=== PATIENT | female | born 1990 | race Caucasian/White ===

== ENCOUNTER 2017-10-25 08:44 | Emergency (ER) | payer SELFPAY ==
[~2017-10-25] VITALS: Ht 157.5 cm; Wt 53.9 kg
[2017-10-25 08:52] VITALS: Ht 157.5 cm; Wt 53.9 kg
[2017-10-25 09:51] LABS: ADD UMIC YES; UR AMORPHOUS CRYSTAL FEW /HPF (NONE SEEN); UR ASCORBIC ACID NEGATIVE (NEGATIVE); UR BACTERIA FEW /HPF (NONE SEEN); UR BILIRUBIN (Dip) NEGATIVE (NEGATIVE); UR BLOOD (Dip) 3+ mg/dL (NEGATIVE); UR CLARITY SLIGHTLY CLOUDY (CLEAR); UR COLOR YELLOW (YELLOW); UR GLUCOSE (Dip) NEGATIVE (NEGATIVE); UR KETONES (Dip) NEGATIVE (NEGATIVE); UR LEUKOCYTE ESTERASE (Dip) 3+ Leu/ul (NEGATIVE); UR NITRITE (Dip) NEGATIVE (NEGATIVE); UR RBC 20 /HPF (0-5); UR SPECIFIC GRAVITY (Dip) 1.005 (1.003-1.030); UR TOTAL PROTEIN (Dip) NEGATIVE (NEGATIVE); UR UROBILINOGEN (Dip) NEGATIVE (NEGATIVE)
[2017-10-25] MEDS ORDERED: CIPR500T4 PO (09:56)
--- NOTE | 2017-10-25 11:01 | ERD ---
ER Documentation Chief Complaint Chief Complaint dysuria had a bladder infection in september has the paperwork HPI Is a 27-year-old female presenting to the emergency department complaining of dysuria for the past 2 weeks. Patient states that a couple weeks prior to being seen she had a urinary tract infection and was given Keflex, patient has finished the antibiotic course and started developing painful urination and hematuria today. Denies any flank pain, fevers ROS All systems reviewed and are negative except as per history of present illness. Medications Home Meds Active Scripts Ciprofloxacin Hcl* (Ciprofloxacin Hcl*) 500 Mg Tablet, 500 MG PO BID, #14 TAB Prov:PASQUALE REBOLLEDO PA-C 10/25/17 Allergies Allergies: Coded Allergies: No Known Allergy (Unverified , 10/25/17) PMhx/Soc History of Surgery: Yes (appendectomy) Anesthesia Reaction: No Hx Neurological Disorder: No Hx Respiratory Disorders: No Hx Cardiac Disorders: No Hx Psychiatric Problems: No Hx Miscellaneous Medical Probl: No Hx Alcohol Use: Yes (socially) Hx Substance Use: No Hx Tobacco Use: No Smoking Status: Never smoker Physical Exam Vitals Vital Signs Date Time Temp Pulse Resp B/P Pulse Ox O2 Delivery O2 Flow Rate FiO2 10/25/17 08:52 98.0 93 18 135/83 97 Physical Exam Const: Well-nourished no acute distress Head: Atraumatic Eyes: Normal Conjunctiva ENT: Normal External Ears, Nose and Mouth. Neck: Full range of motion..~ No meningismus. Resp: Clear to auscultation bilaterally Cardio: Regular rate and rhythm, no murmurs Abd: Soft, non tender, non distended. Normal bowel sounds Skin: No petechiae or rashes Back: No midline or flank tenderness Ext: No cyanosis, or edema Neur: Awake and alert Psych: Normal Mood and Affect Results 24 hrs Laboratory Tests Test 10/25/17 09:12 Urine Color YELLOW Urine Clarity SLIGHTLY CLOUDY Urine pH 6.0 Urine Specific [place] 1.005 Urine Ketones NEGATIVEmg/dL Urine Nitrite NEGATIVEmg/dL Urine Bilirubin NEGATIVEmg/dL Urine Urobilinogen NEGATIVEmg/dL Urine Leukocyte Esterase 3+Levar/ul Urine Microscopic RBC 20/HPF Urine Microscopic WBC 139/HPF Urine Amorphous Crystals FEW/HPF Urine Bacteria FEW/HPF Urine Hemoglobin 3+mg/dL Urine Glucose NEGATIVEmg/dL Urine Total Protein NEGATIVEmg/dl Procedures/MDM 27-year-old female presents the emergency department complaining of dysuria for the past 2 weeks, patient states that she recently was treated for a urinary tract infection and finished antibiotic course Keflex and she started having dysuria again. Patient had positive infection on urinalysis, there was no evidence of pyelonephritis or nephrolithiasis. I have changed her antibiotic to Cipro and send a urine culture. Patient stable to be discharged home to follow-up with primary care physician and to return to the ER for any worsening signs or symptoms. She understands and agrees with this plan Departure Diagnosis: Primary Impression: UTI (urinary tract infection) Condition: Stable Patient Instructions: Understanding Urinary Tract Infections (UTIs) Additional Instructions: FOLLOW UP WITH YOUR PRIMARY CARE PHYSICIAN TOMORROW.Return to this facility if you are not improving as expected. Take all medicines as directed. Return to this facility if you are not improving as expected. PASQUALE REBOLLEDO PA-C Oct 25, 2017 11:01
== END 2017-10-25 09:56 | disposition home or self-care (01) ==
LOC: FTE 08:44
DX: N39.0 Urinary tract infection, site not specified (principal)
CPT/HCPCS: 81001; 87086; 99283